=== PATIENT | male | born 1955 | race Caucasian/White ===

== ENCOUNTER → 2019-12-20 | Outpatient (CLI) | payer BC ==
--- NOTE | 2019-12-20 11:05 | XR ---
EXAMINATION TYPE: XR chest 2V DATE OF EXAM: 12/20/2019 COMPARISON: CTA chest May 19, 2012. Prior chest x-ray June 29, 2012. HISTORY: Presurgical study. TECHNIQUE: Frontal and lateral views of the chest are obtained. FINDINGS: There is no focal air space opacity, pleural effusion, or pneumothorax seen. The cardiac silhouette size is stable and upper limits of normal. Slight underlying scoliotic curvature redemonst rated. IMPRESSION: No acute cardiopulmonary process. No significant change from prior studies.
[2019-12-20 12:40] LABS: Prothrombin Time 10.2 sec (9.0-12.0)
[2019-12-20 12:47] LABS: Basophils % (A) 0 %; Eosinophils # (A) 0.2 k/uL (0-0.7); Eosinophils % (A) 3 %; HCT 45.5 % (39.0-53.0); HGB 14.6 gm/dL (13.0-17.5); Lymphocytes # (A) 1.2 k/uL (1.0-4.8); Lymphocytes % (A) 13 %; MCH 28.2 pg (25.0-35.0); MCHC 32.1 g/dL (31.0-37.0); MCV 87.8 fL (80.0-100.0); Mean Platelet Volume 8.4; Monocytes # (A) 0.5 k/uL (0-1.0); Monocytes % (A) 6 %; Neutrophils % (A) 77 %; Platelet Count 231 k/uL (150-450); RBC 5.19 m/uL (4.30-5.90); RDW 13.8 % (11.5-15.5); WBC 9.2 k/uL (3.8-10.6)
[2019-12-20 12:58] LABS: Albumin 4.5 g/dL (3.5-5.0); Calcium 9.6 mg/dL (8.4-10.2); Potassium 5.2 mmol/L (3.5-5.1); Total Bilirubin 0.5 mg/dL (0.2-1.3); Total Protein 7.1 g/dL (6.3-8.2)
== END | disposition home or self-care (01) ==
LOC: LABPAT 10:29
PROVIDERS: ATTEND Internal Medicine Interventional Cardiology
DX: Z01.818 Encounter for other preprocedural examination (principal); Z01.812 Encounter for preprocedural laboratory examination; M17.11 Unilateral primary osteoarthritis, right knee; E78.2 Mixed hyperlipidemia
CPT/HCPCS: 71046; 80053; 80061; 85025; 85610; 87070

== ENCOUNTER 2020-01-09 06:19 | Day surgery (SDC) | payer BC ==
[2020-01-05 12:27] VITALS: BMI 41.7
--- NOTE | 2020-01-08 10:45 | HP ---
HISTORY AND PHYSICAL CHIEF COMPLAINT: Right knee pain. HISTORY OF PRESENT ILLNESS: The patient is a 64-year-old retired male who presents with progressive right knee pain secondary to osteoarthrosis worsening over the past several years. He has pain with weightbearing activities that limits him significantly. He has tried medications in addition to previous injections with partial temporary relief. He does use a cane. PAST MEDICAL HISTORY: Significant for COPD, hypertension, arthritis, dtr-jqfeohq-qojidlmon diabetes, and obesity. PAST SURGICAL HISTORY: Significant for left knee arthroscopy in addition to previous heel surgery. CURRENT MEDICATIONS: Spironolactone, hydrochlorothiazide, lisinopril, metformin, insulin, meloxicam, atorvastatin and gabapentin. He denies drug allergies. FAMILY HISTORY: Unknown. SOCIAL HISTORY: Negative for current tobacco or alcohol use. 16 POINT REVIEW OF SYSTEMS: Otherwise reviewed and is noncontributory. PHYSICAL EXAMINATION: On examination, the patient is approximately 6 foot 2, 325 pounds of endomorphic habitus. HEENT: Exam is nonfocal. Neck is supple. He has painless passive motion of the right hip. Straight leg raise is negative. Active motion right knee -12 to 105 degrees of flexion. He has a mild effusion. He is tender about the medial joint line. Collaterals are stable, Cathie is negative, Latrice's is equivocal. His he has genu varum alignment. His distal neurovascular appears intact in the right lower extremity. Previous x-rays of the right knee obtained in the office show severe medial and patellofemoral compartment narrowing. IMPRESSION: 1. Right knee severe medial and patellofemoral compartment osteoarthrosis. 2. Chronic obstructive pulmonary disease. 3. Obesity. 4. Diabetes. RECOMMENDATIONS: I talked to the patient at length regarding his condition and treatment options. At this point, he has tried extensive conservative measures with persistence of his symptoms and limitation because of pain related to his osteoarthrosis. After a thorough discussion, he opts to proceed with surgery. We will plan to proceed with right total knee arthroplasty. Risks and benefits were discussed at length in layman's terms. We will institute DVT prophylaxis, postoperatively. MMODL / IJN: [id number] /
[~2020-01-09 06:19] MED LIST: ACETAMINOPHEN TAB 500 MG TAB PO ONE; DEXAMETHASONE SOD PHOSPHATE 10 MG/ML 1 ML VIAL IV ONE; HYDROmorphone 0.5 MG/0.5 ML SYRINGE IVP PRN; LIDOCAINE 1% (10MG/ML) FOR IV START INTRADERMA PRN; MELOXICAM 7.5 MG TAB PO ONE; MIDAZOLAM 2 MG/2 ML VIAL IV PRN; ONDANSETRON 4 MG/2 ML VIAL IVP ONE; TRANEXAMIC ACID 1,000 MG in SODIUM CHLORIDE 0.9% 100 ML IVPB ONE; ceFAZolin 3 GM in SODIUM CHLORIDE 0.9% 100 ML IVPB ONE; fentaNYL (PF) 50 MCG/ML 2 ML AMP IV PRN
[2020-01-09] MEDS ORDERED: ONDANSETRON 4 MG/2 ML VIAL ONE (07:12)
[2020-01-09] MEDS ORDERED: ACETAMINOPHEN TAB 500 MG TAB ONE (07:12)
[2020-01-09 07:23] LABS: Glucose,Whole Blood 159 mg/dL (75-99)
[2020-01-09] MEDS ORDERED: fentaNYL (PF) 50 MCG/ML 2 ML AMP IV ONE (07:27)
[2020-01-09] MEDS ORDERED: MIDAZOLAM 2 MG/2 ML VIAL IV ONE (07:27)
[2020-01-09] MEDS: LACTATED RINGERS 1,000 ML IV SCH (07:28)
[2020-01-09] MEDS ORDERED: fentaNYL (PF) 50 MCG/ML 2 ML AMP ONE (07:55)
[2020-01-09] MEDS ORDERED: TRANEXAMIC ACID 1,000 MG/10 ML VIAL ONE (07:55)
[2020-01-09] MEDS ORDERED: SODIUM CHLORIDE 0.9% 100 ML BAG ONE (07:55)
[2020-01-09] MEDS ORDERED: PROPOFOL 10 MG/ML 20 ML VIAL IV ONE (07:55)
[2020-01-09] MEDS ORDERED: MIDAZOLAM 2 MG/2 ML VIAL ONE (07:55)
[2020-01-09] MEDS ORDERED: ROPIVACAINE 246.25 MG, EPINEPHrine 0.5 MG, KETOROLAC 30 MG, cloNIDine HCL/PF 80 MCG, WA... MISCELLANE ONE ×5 (08:01)
[2020-01-09] MEDS ORDERED: ceFAZolin 3,000 MG in SODIUM CHLORIDE 0.9% IRRIGATIO 3,000 ML IRRIGATION ONE (08:43)
[2020-01-09] MEDS ORDERED: MAGNESIUM HYDROXIDE 2,400 MG/10 ML CUP PO PRN (09:49)
[2020-01-09] MEDS ORDERED: ACETAMINOPHEN TAB 325 MG TAB PO PRN (09:49)
[2020-01-09] MEDS ORDERED: ONDANSETRON 4 MG/2 ML VIAL IVP PRN (09:49)
[2020-01-09] MEDS ORDERED: traMADol 50 MG TAB PO PRN (09:49)
[2020-01-09] MEDS ORDERED: NALOXONE 0.4 MG/ML 1 ML VIAL IV PRN (09:49)
[2020-01-09] MEDS ORDERED: HYDROcodone/APAP 7.5-325MG 1 EACH TAB PO PRN (09:49)
[2020-01-09] MEDS ORDERED: HYDROmorphone 0.5 MG/0.5 ML SYRINGE IVP PRN (09:49)
[2020-01-09] MEDS ORDERED: LACTATED RINGERS 1,000 ML IV ONE (09:50)
--- NOTE | 2020-01-09 09:50 | P.ANPRN ---
Procedure Note - Anesthesia - Nerve Block Performed Right Adductor Canal Infusion Time Out Performed: Yes ([id number]) Date of Procedure: 01/09/20 Procedure Start Time: : Procedure Stop Time: : Location of Patient: PreOp Indication: Acute Post-Operative Pain, Requested by Surgeon Specifically requested for management of pain by : Rufus Gray Sedation Type: Sedate with meaningful contact maintained Preparation: Sterile Prep Position: Supine Catheter Depth at Skin (cm): 8 Catheter: Indwelling Needle Types: Pajunk Needle Gauge: 18 Ultrasound used to visualize needle placement: Yes Ultrasound used to observe medication spread: Yes Injectate: 0.5% Ropivacaine (see comment for volume) (20cc) Blood Aspirated: No Pain Paresthesia on Injection Noted: No Resistance on Injection: Normal Image Stored and Saved: Yes Events: Uneventful and Well Tolerated
--- NOTE | 2020-01-09 10:20 | P.OP ---
Date of Procedure: 01/09/20 Preoperative Diagnosis: Severe tricompartmental osteoarthrosis Postoperative Diagnosis: Same Procedure(s) Performed: Right total knee arthroplastycementedposterior stabilized Implants: Depuy Attune size 8 cemented femoral component, size 7 cemented tibial component, 15 mm tibial stem, 16 mm articular surface, 38 mm patellar component. This is a posterior stabilized implant. Anesthesia: regional, local, spinal Surgeon: Rufus Gray Calculating Machine Operator #1: Ravindra Jiang Estimated Blood Loss (ml): 50 Pathology: other (Bone fragments) Condition: stable Disposition: PACU Indications for Procedure: The patient's a 64-year-old male who presents with progressive right knee pain secondary to osteoarthrosis despite conservative measures. A discussion of the risks and benefits of operative intervention versus continued conservative measures was made with patient. To proceed with surgery. Operative risks to include infection, neurovascular injury, development of blood clots, possible fracture, possible component loosening/failure and possible need for subsequent procedures was discussed. Informed consent was obtained. Operative Findings: As below Description of Procedure: The patient was brought to the operating room, and after induction of spinal anesthesia the right lower extremity was prepped and draped in a normal fashion. The tourniquet was inflated to 270 mm marker. A longitudinal incision extending 3 finger breaths above the superior pole of patella extending to the medial aspect the tibial tubercle was then made. The skin and subcutaneous tissues were divided sharply. Electrocautery was used for hemostasis. A medial parapatellar arthrotomy was performed. The medial soft tissues to include the superficial and deep portions of the medial collateral ligament were elevated subperiosteally. The patella was everted. A portion of the retropatellar fat pad was excised sharply. The anterior cruciate ligament was sacrificed. Blunt retractors were placed. A starting hole was made in the distal femur 1 cm anterior to the posterior cruciate ligament origin. An intramedullary femoral guide was then inserted planning on 5 valgus distal cut with 10 mm distal resection. The cutting block was pinned in place. The distal cut was then made. The posterior referencing sizing guide was utilized. I felt size 8 was most appropriate. 3 of external rotation was built into the system and verified off the trans-epicondylar axis and the posterior condyles. The cutting block was pinned in place. The anterior, posterior, and chamfer cuts then made. Bone fragments were removed. The intercondylar guide was placed and the notch cut was made with a sagittal saw. The bone block was removed in one fragment. The trial component was then placed. There is good anterior to posterior and medial to lateral fit. The distal peg holes were drilled. The trial component was removed. Attention was then paid towards preparing the proximal femur. An extra medullary guide was utilized in line with the tibial shaft and second metatarsal distally. I planned on 6 mm resection from the medial compartment. The cutting block was pinned in place. The proximal tibial cut was then made. The bone was removed in one fragment. The remnants of the medial and lateral menisci were excised at the capsular junction with electrocautery. The tibia sized most appropriately at size 7. The trial femoral and tibial components were placed along with a 16 mm articular surface. I was able to obtain full flexion and extension with internal and external rotation. After several flexion and extension cycles, the tibial rotation was marked with electrocautery line with the medial one third of the tibial tubercle. Attention was then paid towards preparing the patella. A patella reamer was utilized taking stem to 14 mm of bone stock. A good flush cut was made. The patella sized most appropriately 38 mm. The peg holes were drilled. The trial components placed. I had good patellofemoral tracking with no hands technique. The trial components were then removed. The tibia was prepared in the appropriate rotation with appropriate drill and keel punch. The posterior osteophytes were removed with a curved osteotome. The flexion and extension gaps were checked and felt to be symmetric at 16 mm. A trial components were then removed. The posterior soft tissues were injected with ropivacaine. The bony surfaces were prepared with pulsatile lavage and dried. The tibial component was then cemented place was fully seated. Excess cement was removed. The femoral component cemented place and was fully seated. Excess cement was removed. The trial 16 mm articular surface was placed and the knee was put in full extension. The patella component was cemented place. After the cement had sufficiently hardened, the knee was again taken through a range of motion. Again I was able to obtain full flexion and extension with varus and valgus stress. The trial 16 mm articular surface was removed and the final one inserted. This was fully seated. Care was taken to avoid any soft tissue interposition. Pulsatile lavage was again utilized. The medial parapatellar arthrotomy was closed with #2 Ethibond suture. The tourniquet was deflated with approximately 60 minutes total tourniquet time. Final hemostasis was obtained with the cautery. There was minimal bleeding therefore a deep drain was not placed. The subcutaneous tissues were reapproximated with interrupted 2-0 Vicryl sutures. The skin was reapproximated with 3-0 subcuticular strata fix suture. Skin tape and adhesive was applied. A sterile dressing was applied. The patient was awoken from sedation and transferred to recovery room in good condition. Blood loss was estimated at 50 mL. No complications were incurred. Sponge and needle counts were correct at the end of the case. Abhinav BUTLER assisted during the major components of this case to include exposure, bone resection, implantation, and closure.
[2020-01-09] MEDS ORDERED: ROPIVACAINE 0.2%-NS ON-Q PUMP 1,090 MG, EMPTY PAIN BALL 1 EACH MISCELLANE PRN (10:21)
[2020-01-09 10:37] LABS: Glucose,Whole Blood 188 mg/dL (75-99)
--- NOTE | 2020-01-09 11:15 | XR ---
EXAMINATION TYPE: XR knee limited RT DATE OF EXAM: 01/09/2020 CLINICAL HISTORY: Right knee pain and arthritis status post total knee replacement. TECHNIQUE: Portable AP and crosstable lateral views of the right knee are obtained immediately posto peratively. COMPARISON: None FINDINGS: Metallic hardware from total right knee arthroplasty is seen and appears satisfactory in a lignment and position. Proximal tibial component approaches the lateral margin of the proximal tibial cortex on frontal projection. There is evidence of recent surgery with diffuse subcutaneous gas and soft tissue swelling noted. IMPRESSION: METALLIC HARDWARE FROM TOTAL right KNEE ARTHROPLASTY IS SATISFACTORY IN ALIGNMENT.
[2020-01-09] MEDS ORDERED: IPRATROPIUM-ALBUTEROL 3 ML NEB INHALATION PRN (11:52)
[2020-01-09] MEDS ORDERED: PANTOPRAZOLE 40 MG/10 ML VIAL IVP SCH (12:00)
[2020-01-09 12:45] LABS: Glucose,Whole Blood 307 mg/dL (75-99)
[2020-01-09] MEDS: INSULIN ASPART (NovoLOG) 100 UNIT/ML VIAL SQ SCH ×4 (12:48→20:37)
[2020-01-09] MEDS: ceFAZolin 3 GM in SODIUM CHLORIDE 0.9% 100 ML IVPB SCH ×2 (15:17→23:07)
[2020-01-09] MEDS: IPRATROPIUM-ALBUTEROL 3 ML NEB INHALATION SCH ×3 (15:45→21:07)
[2020-01-09 16:40] LABS: Glucose,Whole Blood 202 mg/dL (75-99)
[2020-01-09] MEDS: HYDROcodone/APAP 7.5-325MG 1 EACH TAB PO PRN ×2 (16:58→23:07)
[2020-01-09] MEDS: metFORMIN 500 MG TAB PO SCH (16:58)
[2020-01-09 20:21] LABS: Glucose,Whole Blood 179 mg/dL (75-99)
[2020-01-09] MEDS: SENNOSIDES-DOCUSATE SODIUM 1 EACH TAB PO SCH (20:37)
[2020-01-09] MEDS: INSULIN DETEMIR (LEVEMIR) 100 UNIT/ML SYR SQ SCH (20:52)
[2020-01-10 02:13] LABS: Glucose,Whole Blood 142 mg/dL (75-99)
[2020-01-10] MEDS: LACTATED RINGERS 1,000 ML IV SCH (05:04)
[2020-01-10] MEDS: HYDROcodone/APAP 7.5-325MG 1 EACH TAB PO PRN ×2 (05:05→10:37)
[2020-01-10 06:39] LABS: Glucose,Whole Blood 170 mg/dL (75-99)
--- NOTE | 2020-01-10 07:16 | P.PN ---
Progress Note - Text Progress Note Date: 01/10/20 (557) Anesthesiology Postop day 1 status post total knee arthroplasty with adductor canal catheter. Patient doing well. VAS 10 out of 10. Getting breakthrough meds, patient states was able to rest on and off throughout night. Gross strength intact in lower extremity. Afebrile. Denies alterations in sensorium. Catheter site intact. Heart regular rate Lungs nonlabored Abdomen nondistended Assessment: Postop day 1 status post total knee arthroplasty with adductor canal catheter Plan: All questions answered. Maintain catheter 2 more days with patient removal at home. Instructions were given at discharge.
[2020-01-10] MEDS: INSULIN ASPART (NovoLOG) 100 UNIT/ML VIAL SQ SCH ×6 (07:29→21:04)
[2020-01-10] MEDS: metFORMIN 500 MG TAB PO SCH ×2 (07:30→16:34)
[2020-01-10] MEDS: lisinopriL 20 MG TAB PO SCH (07:30)
[2020-01-10] MEDS: RIVAROXABAN 10 MG TAB PO SCH (07:30)
[2020-01-10] MEDS: PANTOPRAZOLE 40 MG TABLET PO SCH (07:30)
[2020-01-10 08:03] LABS: Basophils % (A) 0 %; Eosinophils # (A) 0.1 k/uL (0-0.7); Eosinophils % (A) 1 %; HCT 33.4 % (39.0-53.0); Lymphocytes # (A) 0.7 k/uL (1.0-4.8); Lymphocytes % (A) 6 %; MCH 28.2 pg (25.0-35.0); MCHC 31.8 g/dL (31.0-37.0); MCV 88.7 fL (80.0-100.0); Mean Platelet Volume 8.3; Monocytes % (A) 8 %; Neutrophils # (A) 9.9 k/uL (1.3-7.7); Neutrophils % (A) 84 %; Platelet Count 186 k/uL (150-450); RBC 3.76 m/uL (4.30-5.90); RDW 14.6 % (11.5-15.5); WBC 11.8 k/uL (3.8-10.6)
[2020-01-10 08:13] LABS: HGB 10.6 gm/dL (13.0-17.5)
[2020-01-10] MEDS: IPRATROPIUM-ALBUTEROL 3 ML NEB INHALATION SCH ×4 (08:23→19:24)
[2020-01-10 09:54] LABS: African American GFR (CKD) >90 (>60 ml/min/1.73 sqM); Anion Gap 8 mmol/L; Blood Urea Nitrogen 21 mg/dL (9-20); Calcium 8.3 mg/dL (8.4-10.2); Carbon Dioxide 23 mmol/L (22-30); Chloride 103 mmol/L (98-107); Glucose 205 mg/dL (74-99); Non-African American GFR(CKD) >90 (>60 ml/min/1.73 sqM); Potassium 4.6 mmol/L (3.5-5.1); Sodium 134 mmol/L (137-145)
--- NOTE | 2020-01-10 11:03 | P.CONS ---
History of Present Illness - Reason for Consult Consult date: 01/10/20 Medical management diabetes mellitus, COPD, hypertension Requesting physician: Rufus Gray - Chief Complaint Osteoarthritis right knee - History of Present Illness This is a 64-year-old gentleman with past medical history of COPD, diabetes mellitus, hyperlipidemia, hypertension, osteoarthritis, obesity and multiple other medical issues, status post right total knee arthroplasty. Tolerated procedure well. Pain managementpatient has adductor canal catheter with anthony tional breakthrough meds prn. Maintaining ice on surgical site, complaining more of pain in the thigh area, proximal to the surgical site. T-max 99.1, WBC 11.8. Incentive spirometer at bedside. Maintaining O2 sats in the high 90s on room air. Hemoglobin 10.6, asymptomatic, suspect dilutional. Diet intake 100%. Blood sugars better controlled, currently 170, home med regimen adjusted. Passing flatus, denies nausea, vomiting or diarrhea. Denies chest pain, palpitations or shortness of breath. Review of Systems Constitutional: Denied any fatigue denied any fever. Cardio vascular: denied any chest pain, palpitations Gastrointestinal denied any nausea vomiting Pulmonary: Denied any shortness of breath cough Neurologic denied any new focal deficits ROS Statement: Those systems with pertinent positive or pertinent negative responses have been documented in the HPI. ROS Other: All systems not noted in ROS Statement are negative. Past Medical History Past Medical History: COPD, Diabetes Mellitus, Hyperlipidemia, Hypertension, Osteoarthritis (OA) History of Any Multi-Drug Resistant Organisms: None Reported Past Surgical History: Orthopedic Surgery Additional Past Surgical History / Comment(s): shattered lt heel repair, lt knee arthroscopy Past Anesthesia/Blood Transfusion Reactions: Previous Problems w/ Anesthesia Additional Past Anesthesia/Blood Transfusion Reaction / Comm: "come out of it before I'm supposed to" Smoking Status: Never smoker - Past Family History Mother Family Medical History: Unable to Obtain Medications and Allergies Home Medications Medication Instructions Recorded Confirmed Type Atorvastatin [Lipitor] 20 mg PO DAILY 03/27/19 01/05/20 History Insulin Detemir (Levemir) [Levemir] 100 units SQ HS 03/27/19 01/05/20 History Meloxicam 15 mg PO HS 03/27/19 01/05/20 History Spironolactone 50 mg PO DAILY 03/27/19 01/05/20 History lisinopriL [Zestril] 20 mg PO DAILY 03/27/19 01/05/20 History Albuterol Sulfate [Ventolin HFA] 1 - 2 puff INHALATION Q6H PRN 01/05/20 01/05/20 History Cannabidiol (Cbd) [Epidiolex] 1 dose TOPICAL DAILY PRN 01/05/20 01/05/20 History Furosemide [Lasix] 20 mg PO DAILY PRN 01/05/20 01/05/20 History Insulin Aspart [NovoLOG] 80 units SQ AC-TID 01/05/20 01/05/20 History Multivitamins, Thera [Multivitamin 1 tab PO DAILY 01/05/20 01/05/20 History (formulary)] Phentermine HCl 37.5 mg PO AC-BRKFST 01/05/20 01/05/20 History metFORMIN HCL 1,000 mg PO BID 01/05/20 01/05/20 History Allergies Allergy/AdvReac Type Severity Reaction Status Date / Time No Known Allergies Allergy Verified 01/09/20 06:49 Physical Exam Vitals: Vital Signs Temp Pulse Pulse Pulse Resp BP BP 01/10/20 08:45 83 01/10/20 08:23 86 01/10/20 07:00 99.1 F 83 12 109/66 01/10/20 01:19 99.0 F 74 18 01/09/20 19:21 98.1 F 83 16 01/09/20 13:29 102 H 01/09/20 13:13 105 H 01/09/20 12:58 90 01/09/20 12:43 83 01/09/20 12:28 85 01/09/20 12:13 98 01/09/20 11:58 81 01/09/20 11:42 98.3 F 86 14 142/78 01/09/20 11:21 80 14 108/51 01/09/20 11:13 82 16 104/51 01/09/20 11:00 79 14 148/66 01/09/20 10:45 78 16 108/53 BP Pulse Ox 01/10/20 08:45 01/10/20 08:23 97 01/10/20 07:00 98 01/10/20 01:19 125/70 98 01/09/20 19:21 145/70 99 01/09/20 13:29 116/56 01/09/20 13:13 147/90 01/09/20 12:58 149/81 01/09/20 12:43 132/70 01/09/20 12:28 123/72 01/09/20 12:13 162/81 01/09/20 11:58 143/79 01/09/20 11:42 97 01/09/20 11:21 92 L 01/09/20 11:13 92 L 01/09/20 11:00 93 L 01/09/20 10:45 94 L Intake and Output 01/09/20 01/10/20 01/10/20 22:59 06:59 14:59 Intake Total 400 560 Output Total 525 Balance -125 560 Intake: Intake, IV Titration 400 Amount Lactated Ringers 1,000 ml 400 @ 50 mls/hr IV .Q20H [facility] Rx#:[id number] Oral 560 Output: Urine 525 Other: Voiding Method Toilet # Voids 1 2 PHYSICAL EXAM: VITAL SIGNS: As above GENERAL: Sitting up in chair, no acute distress HEENT: Conjunctivae normal. eyes normal. Oral mucosa moist NECK: No JVD. No thyroid enlargement. No LNs CARDIOVASCULAR: S1, S2 regular. No murmur RESPIRATION: Breath sounds diminished in the bases. No rhonchi or crackles. No bronchial breathing. ABDOMEN: Soft, obese, nontender . No guarding. no masses palpable. No ascites, No hepatosplenomegaly.Bowel sounds heard. LEGS: Right leg elevated, dressing clean dry and intact, ice packs on the affected side, mild edema, no calf pain, positive peripheral pulses PSYCHIATRY: Alert and oriented X3, mood and affect normal. NERVOUS SYSTEM: Cranial N 2-12 grossly normal. Moves all 4 limbs. No focal deficits. Strength and sensation grossly intact.. Skin: Warm and dry, no rash Lymphatic system. No LN neck axilla Results CBC & Chem 7: 01/10/20 07:41 01/10/20 07:41 Labs: Abnormal Lab Results - Last 24 Hours (Table) 01/09/20 01/09/20 01/09/20 Range/Units 12:44 16:38 20:11 WBC (3.8-10.6) k/uL RBC (4.30-5.90) m/uL Hgb (13.0-17.5) gm/dL Hct (39.0-53.0) % Neutrophils # (1.3-7.7) k/uL Lymphocytes # (1.0-4.8) k/uL Sodium (137-145) mmol/L BUN (9-20) mg/dL Glucose (74-99) mg/dL POC Glucose (mg/dL) 307 H 202 H 179 H (75-99) mg/dL Calcium (8.4-10.2) mg/dL 01/10/20 01/10/20 01/10/20 Range/Units 02:09 06:37 07:41 WBC 11.8 H (3.8-10.6) k/uL RBC 3.76 L (4.30-5.90) m/uL Hgb 10.6 L D (13.0-17.5) gm/dL Hct 33.4 L (39.0-53.0) % Neutrophils # 9.9 H (1.3-7.7) k/uL Lymphocytes # 0.7 L (1.0-4.8) k/uL Sodium (137-145) mmol/L BUN (9-20) mg/dL Glucose (74-99) mg/dL POC Glucose (mg/dL) 142 H 170 H (75-99) mg/dL Calcium (8.4-10.2) mg/dL 01/10/20 Range/Units 07:41 WBC (3.8-10.6) k/uL RBC (4.30-5.90) m/uL Hgb (13.0-17.5) gm/dL Hct (39.0-53.0) % Neutrophils # (1.3-7.7) k/uL Lymphocytes # (1.0-4.8) k/uL Sodium 134 L (137-145) mmol/L BUN 21 H (9-20) mg/dL Glucose 205 H (74-99) mg/dL POC Glucose (mg/dL) (75-99) mg/dL Calcium 8.3 L (8.4-10.2) mg/dL Assessment and Plan Assessment: Right knee osteoarthritis, status post right total knee arthroplasty Acute postop anemia, asymptomatic, suspect dilutional,EBL 50ml COPD stable Diabetes mellitus, hyperglycemic Hypertension Hyperlipidemia Morbid obesity, BMI 42.8, Plan: Continue on current medication regime ,monitoring and diabetic treatment. Pain management. PT. Suspect hemoglobin dilutional, recheck in a.m. Home meds have been reviewed and resumed accordingly. Adjusting oral hypoglycemics -Close monitoring of blood sugars. Hemoglobin A1c pending. Thank you Dr. Gray for the consult. The impression and plan of care has been dictated as directed. : I performed a history and examination of this patient, discussed the same with the dictator. I agree with the dictator's note ,documented as a scribe. Any additional findings or plans will be noted.
[2020-01-10 11:09] LABS: Glucose,Whole Blood 222 mg/dL (75-99)
[2020-01-10] MEDS ORDERED: INSULIN ASPART (NovoLOG) 100 UNIT/ML VIAL SQ SCH ×2 (12:30)
--- NOTE | 2020-01-10 12:55 | P.PN ---
Subjective Progress Note Date: 01/10/20 Principal diagnosis: Status post right total knee arthroplasty The patient notes moderate right knee pain overnight. He denies shortness of breath. Objective - Vital Signs Vital signs: Vital Signs Temp 99.1 F 01/10/20 07:00 Pulse 83 01/10/20 08:45 Resp 12 01/10/20 07:00 BP 109/66 01/10/20 07:00 Pulse Ox 97 01/10/20 08:23 Intake & Output 01/09/20 01/10/20 01/10/20 18:59 06:59 18:59 Intake Total 2111 400 560 Output Total 575 Balance 1536 400 560 Weight 151.2 kg Intake: IV 1201 Intake, IV Titration 400 Amount Lactated Ringers 1,000 ml 400 @ 50 mls/hr IV .Q20H [facility] Rx#:[id number] Oral 910 560 Output: Urine 525 Estimated Blood Loss 50 Other: Voiding Method Toilet # Voids 1 2 - Exam Right knee incision clean/dry/intact Homans negative right lower extremity Neurovascular exam intact right lower extremity - Labs CBC & Chem 7: 01/10/20 07:41 01/10/20 07:41 Labs: Abnormal Lab Results - Last 24 Hours (Table) 01/09/20 01/09/20 01/10/20 Range/Units 16:38 20:11 02:09 WBC (3.8-10.6) k/uL RBC (4.30-5.90) m/uL Hgb (13.0-17.5) gm/dL Hct (39.0-53.0) % Neutrophils # (1.3-7.7) k/uL Lymphocytes # (1.0-4.8) k/uL Sodium (137-145) mmol/L BUN (9-20) mg/dL Glucose (74-99) mg/dL POC Glucose (mg/dL) 202 H 179 H 142 H (75-99) mg/dL Calcium (8.4-10.2) mg/dL 01/10/20 01/10/20 01/10/20 Range/Units 06:37 07:41 07:41 WBC 11.8 H (3.8-10.6) k/uL RBC 3.76 L (4.30-5.90) m/uL Hgb 10.6 L D (13.0-17.5) gm/dL Hct 33.4 L (39.0-53.0) % Neutrophils # 9.9 H (1.3-7.7) k/uL Lymphocytes # 0.7 L (1.0-4.8) k/uL Sodium 134 L (137-145) mmol/L BUN 21 H (9-20) mg/dL Glucose 205 H (74-99) mg/dL POC Glucose (mg/dL) 170 H (75-99) mg/dL Calcium 8.3 L (8.4-10.2) mg/dL 01/10/20 Range/Units 11:07 WBC (3.8-10.6) k/uL RBC (4.30-5.90) m/uL Hgb (13.0-17.5) gm/dL Hct (39.0-53.0) % Neutrophils # (1.3-7.7) k/uL Lymphocytes # (1.0-4.8) k/uL Sodium (137-145) mmol/L BUN (9-20) mg/dL Glucose (74-99) mg/dL POC Glucose (mg/dL) 222 H (75-99) mg/dL Calcium (8.4-10.2) mg/dL Assessment and Plan Assessment: Status post right total knee arthroplasty Plan: Continue physical therapy. Continue analgesia. DVT prophylaxis. Possible discharge home tomorrow. Time with Patient: Less than 30
[2020-01-10 16:22] LABS: Glucose,Whole Blood 171 mg/dL (75-99)
[2020-01-10] MEDS: HYDROcodone/APAP 10-325MG 1 EACH TAB PO PRN ×2 (16:34→21:04)
[2020-01-10 21:02] LABS: Glucose,Whole Blood 190 mg/dL (75-99)
[2020-01-10] MEDS: SENNOSIDES-DOCUSATE SODIUM 1 EACH TAB PO SCH (21:03)
[2020-01-10] MEDS: INSULIN DETEMIR (LEVEMIR) 100 UNIT/ML SYR SQ SCH (21:04)
[2020-01-10 23:26] LABS: Hemoglobin A1C 6.3 % (4.0-6.0)
[2020-01-11] MEDS: LACTATED RINGERS 1,000 ML IV SCH (06:21)
[2020-01-11 06:47] LABS: Glucose,Whole Blood 144 mg/dL (75-99)
[2020-01-11 07:47] VITALS: BP 136/61; RESP 16; TEMP 98.3
[2020-01-11] MEDS: HYDROcodone/APAP 10-325MG 1 EACH TAB PO PRN ×2 (07:49→11:32)
[2020-01-11] MEDS: INSULIN ASPART (NovoLOG) 100 UNIT/ML VIAL SQ SCH ×4 (07:50→12:12)
[2020-01-11] MEDS: lisinopriL 20 MG TAB PO SCH (07:50)
[2020-01-11] MEDS: metFORMIN 500 MG TAB PO SCH (07:50)
[2020-01-11] MEDS: RIVAROXABAN 10 MG TAB PO SCH (07:50)
[2020-01-11] MEDS: PANTOPRAZOLE 40 MG TABLET PO SCH (07:50)
[2020-01-11] MEDS: IPRATROPIUM-ALBUTEROL 3 ML NEB INHALATION SCH ×2 (08:20→11:45)
[2020-01-11] MEDS ORDERED: MULTIVITAMINS, THERA 1 EACH TAB PO SCH (09:00)
[2020-01-11] MEDS ORDERED: ATORVASTATIN 20 MG TAB PO SCH (09:00)
[2020-01-11] MEDS ORDERED: SPIRONOLACTONE 25 MG TAB PO SCH (09:00)
[2020-01-11 09:23] LABS: HCT 31.6 % (39.0-53.0); HGB 10.7 gm/dL (13.0-17.5); MCH 29.2 pg (25.0-35.0); MCHC 33.9 g/dL (31.0-37.0); MCV 86.2 fL (80.0-100.0); Platelet Count 161 k/uL (150-450); RBC 3.66 m/uL (4.30-5.90); RDW 14.2 % (11.5-15.5); WBC 10.3 k/uL (3.8-10.6)
[2020-01-11] MEDS ORDERED: DOCUSATE 100 MG CAP PO SCH (10:45)
[2020-01-11 11:26] LABS: Glucose,Whole Blood 124 mg/dL (75-99)
[2020-01-11 11:47] VITALS: PULSE 88
--- NOTE | 2020-01-11 12:29 | P.PN ---
Subjective Progress Note Date: 01/11/20 Principal diagnosis: status post right total knee arthroplasty Patient notes improved pain levels involving his right knee. Objective - Vital Signs Vital signs: Vital Signs Temp 98.3 F 01/11/20 07:44 Pulse 88 01/11/20 11:56 Resp 16 01/11/20 07:44 BP 136/61 01/11/20 07:44 Pulse Ox 97 01/11/20 07:44 Intake & Output 01/10/20 01/11/20 01/11/20 18:59 06:59 18:59 Intake Total 2320 700 540 Balance 2320 700 540 Intake: Intake, IV Titration 200 400 Amount Lactated Ringers 1,000 ml 100 400 @ 50 mls/hr IV .Q20H [facility] Rx#:[id number] ceFAZolin 3 gm In Sodium 100 Chloride 0.9% 100 ml @ 200 mls/hr IVPB Q8HR [facility] Rx#:[id number] Oral 2120 300 540 Other: Voiding Method Toilet # Voids 1 - Exam right knee incision clean/dry/intact Neurovascular exam intact right lower extremity Homans negative right lower extremity - Labs CBC & Chem 7: 01/11/20 09:10 01/10/20 07:41 Labs: Abnormal Lab Results - Last 24 Hours (Table) 01/10/20 01/10/20 01/10/20 Range/Units 07:41 16:21 20:57 RBC (4.30-5.90) m/uL Hgb (13.0-17.5) gm/dL Hct (39.0-53.0) % POC Glucose (mg/dL) 171 H 190 H (75-99) mg/dL Hemoglobin A1c 6.3 H (4.0-6.0) % 01/11/20 01/11/20 01/11/20 Range/Units 06:46 09:10 11:26 RBC 3.66 L (4.30-5.90) m/uL Hgb 10.7 L (13.0-17.5) gm/dL Hct 31.6 L (39.0-53.0) % POC Glucose (mg/dL) 144 H 124 H (75-99) mg/dL Hemoglobin A1c (4.0-6.0) % Assessment and Plan Assessment: status post right total knee arthroplasty Plan: Discharge home. Anticoagulation as prescribed. 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 Follow-up 2 weeks. weightbearing as tolerated with walker.
--- NOTE | 2020-01-11 14:15 | P.PN ---
Subjective Progress Note Date: 01/11/20 This is a 64-year-old gentleman with past medical history of COPD, diabetes mellitus, hyperlipidemia, hypertension, osteoarthritis, obesity and multiple other medical issues, status post right total knee arthroplasty. Tolerated procedure well. Pain managementpatient has adductor canal catheter with anthony tional breakthrough meds prn. Maintaining ice on surgical site, complaining more of pain in the thigh area, proximal to the surgical site. T-max 99.1, WBC 11.8. Incentive spirometer at bedside. Maintaining O2 sats in the high 90s on room air. Hemoglobin 10.6, asymptomatic, suspect dilutional. Diet intake 100%. Blood sugars better controlled, currently 170, home med regimen adjusted. Passing flatus, denies nausea, vomiting or diarrhea. Denies chest pain, palpitations or shortness of breath. 01/11/20 Participated with PT, tolerated well. Pain controlled. Passing flatus. No bowel movement. Hemoglobin unchanged, 10.7, platelets 161, asymptomatic, reports no bleeding.VSS, No tachycardia. Denies chest pain, palpitations or shortness of breath. Denies lightheadedness, dizziness or focal deficits. Objective - Vital Signs Vital signs: Vital Signs Temp 98.3 F 01/11/20 07:44 Pulse 92 01/11/20 08:33 Resp 16 01/11/20 07:44 BP 136/61 01/11/20 07:44 Pulse Ox 97 01/11/20 07:44 Intake & Output 01/10/20 01/11/20 01/11/20 18:59 06:59 18:59 Intake Total 2320 700 540 Balance 2320 700 540 Intake: Intake, IV Titration 200 400 Amount Lactated Ringers 1,000 ml 100 400 @ 50 mls/hr IV .Q20H [facility] Rx#:[id number] ceFAZolin 3 gm In Sodium 100 Chloride 0.9% 100 ml @ 200 mls/hr IVPB Q8HR [facility] Rx#:[id number] Oral 2120 300 540 Other: Voiding Method Toilet # Voids 1 - Exam PHYSICAL EXAM: VITAL SIGNS: As above GENERAL: Alert and oriented 3, Sitting up in chair, no acute distress HEENT: Conjunctivae normal. eyes normal. Oral mucosa moist NECK: No JVD. No thyroid enlargement. No LNs CARDIOVASCULAR: S1, S2 regular. No murmur RESPIRATION: Breath sounds diminished in the bases. No rhonchi or crackles. No bronchial breathing. ABDOMEN: Soft, obese, nontender . No guarding. no masses palpable. No ascites, No hepatosplenomegaly.Bowel sounds heard. LEGS: Right leg elevated, dressing clean dry and intact, no calf pain, positive peripheral pulses NERVOUS SYSTEM: Cranial N 2-12 grossly normal. Moves all 4 limbs. No focal deficits. Strength and sensation grossly intact.. Skin: Warm and dry, no rash - Labs CBC & Chem 7: 01/11/20 09:10 01/10/20 07:41 Labs: Abnormal Lab Results - Last 24 Hours (Table) 01/10/20 01/10/20 01/10/20 Range/Units 07:41 07:41 11:07 RBC (4.30-5.90) m/uL Hgb (13.0-17.5) gm/dL Hct (39.0-53.0) % Sodium 134 L (137-145) mmol/L BUN 21 H (9-20) mg/dL Glucose 205 H (74-99) mg/dL POC Glucose (mg/dL) 222 H (75-99) mg/dL Hemoglobin A1c 6.3 H (4.0-6.0) % Calcium 8.3 L (8.4-10.2) mg/dL 01/10/20 01/10/20 01/11/20 Range/Units 16:21 20:57 06:46 RBC (4.30-5.90) m/uL Hgb (13.0-17.5) gm/dL Hct (39.0-53.0) % Sodium (137-145) mmol/L BUN (9-20) mg/dL Glucose (74-99) mg/dL POC Glucose (mg/dL) 171 H 190 H 144 H (75-99) mg/dL Hemoglobin A1c (4.0-6.0) % Calcium (8.4-10.2) mg/dL 01/11/20 Range/Units 09:10 RBC 3.66 L (4.30-5.90) m/uL Hgb 10.7 L (13.0-17.5) gm/dL Hct 31.6 L (39.0-53.0) % Sodium (137-145) mmol/L BUN (9-20) mg/dL Glucose (74-99) mg/dL POC Glucose (mg/dL) (75-99) mg/dL Hemoglobin A1c (4.0-6.0) % Calcium (8.4-10.2) mg/dL Assessment and Plan Assessment: Right knee osteoarthritis, status post right total knee arthroplasty Acute postop anemia, asymptomatic, further follow-up outpatient in clinic with PCP COPD stable Diabetes mellitus, hyperglycemic, better controlled, hemoglobin A1c 6.3 Hypertension Hyperlipidemia Morbid obesity, BMI 42.8, Plan: Continue on current medication regime ,monitoring and diabetic treatment. FOBT ordered,. F/U in PCP clinic with Dr. Briones in 3 days regarding further anemia evaluation/W/U. The impression and plan of care has been dictated as directed. : I performed a history and examination of this patient, discussed the same with the dictator. I agree with the dictator's note ,documented as a scribe. Any additional findings or plans will be noted.
== END 2020-01-11 14:23 | disposition home health service (06) ==
LOC: OR 06:19 → 4SSUR 10:35 → OR 01-11 14:23
PROVIDERS: ATTEND Orthopaedic Surgery
DX: M17.11 Unilateral primary osteoarthritis, right knee (principal); D64.9 Anemia, unspecified; B97.4 Respiratory syncytial virus as the cause of diseases classified elsewhere; J44.9 Chronic obstructive pulmonary disease, unspecified; I10 Essential (primary) hypertension; E78.5 Hyperlipidemia, unspecified; E11.65 Type 2 diabetes mellitus with hyperglycemia; E66.01 Morbid (severe) obesity due to excess calories; Z68.41 Body mass index [BMI] 40.0-44.9, adult; Z98.890 Other specified postprocedural states; Z79.1 Long term (current) use of non-steroidal anti-inflammatories (NSAID); Z79.4 Long term (current) use of insulin; Z79.899 Other long term (current) drug therapy
CPT/HCPCS: 94640 ×4; 94760; 97116 ×2; 97110 ×2; 97161; 64448; 76942; 80048; 84132; 85025; 85027; 88300; 83036; 73560; 27447; C1713; C1776; J2250; J0171; J1100; J0690 ×2; J2405; J3010; J1885; J2795 ×2; J2704; J0735; C9113; J1170

== ENCOUNTER → 2020-02-27 | Outpatient (CLI) | payer BC ==
[2020-02-27 11:55] LABS: Potassium 4.7 mmol/L (3.5-5.1)
== END | disposition home or self-care (01) ==
LOC: LABPAT 10:15
PROVIDERS: ATTEND Orthopaedic Surgery
DX: Z01.818 Encounter for other preprocedural examination (principal); M17.12 Unilateral primary osteoarthritis, left knee
CPT/HCPCS: 36415; 80051

== ENCOUNTER 2020-03-05 08:22 | Day surgery (SDC) | payer BC, MEDICARE ==
[2020-02-29 12:05] VITALS: BMI 40.4
--- NOTE | 2020-03-04 11:00 | HP ---
HISTORY AND PHYSICAL CHIEF COMPLAINTS: Left knee pain. HISTORY OF PRESENT ILLNESS: Patient is a 65-year-old retired gentleman who presents with progressive left knee pain for the past several years. He notes pain, stiffness, and swelling. It limits his normal function and activities. He recently underwent right total knee arthroplasty. He does use a cane. PAST MEDICAL HISTORY: Significant for hypertension and arthritis. PAST SURGICAL HISTORY: Significant for recent right total knee arthroplasty, left knee arthroscopy and left heel surgery. CURRENT MEDICATIONS: Spironolactone, lisinopril, metformin, meloxicam, atorvastatin, gabapentin, [place]. He denies drug allergies. FAMILY HISTORY: Unknown. SOCIAL HISTORY: Negative for current tobacco or alcohol use. 16 POINT REVIEW OF SYSTEMS: Otherwise reviewed and is noncontributory. On examination, the patient is approximately 6 foot 2, 315 pounds of endomorphic habitus. HEENT: Exam is nonfocal. NECK: Supple. He has painless passive motion of his left hip. Straight leg raise is negative. Active motion left knee -14 to 105 degrees of flexion. He has a mild effusion. He is tender about the medial joint line. Collaterals are stable, Cathie is negative, Latrice's is equivocal. His distal neurovascular exam appears intact. Left lower extremity. Weightbearing notch, lateral and Merchant views of the left knee obtained in the office show severe tricompartmental osteoarthrosis. IMPRESSION: 1. Left knee severe tricompartmental osteoarthrosis. 2. Obesity. 3. Non-insulin dependent diabetes. RECOMMENDATIONS: I talked to the patient at length regarding his condition and treatment options. At this point, he is quite symptomatic despite previous conservative measures. After thorough discussion, he opts to proceed with surgery. We will plan to proceed with left total knee arthroplasty. Risks and benefits were discussed at length in layman's terms. We will institute DVT prophylaxis postoperatively. MMODL / IJN: [id number] /
[~2020-03-05 08:22] MED LIST changes: +ROPIVACAINE 246.25 MG, EPINEPHrine 0.5 MG, KETOROLAC 30 MG, cloNIDine HCL/PF 80 MCG, WA... MISCELLANE ONE; -fentaNYL (PF) 50 MCG/ML 2 ML AMP IV PRN
[2020-03-05] MEDS: LACTATED RINGERS 1,000 ML IV SCH (09:10)
[2020-03-05 09:11] LABS: Glucose,Whole Blood 173 mg/dL (75-99)
[2020-03-05] MEDS ORDERED: MIDAZOLAM 2 MG/2 ML VIAL IV ONE (09:20)
[2020-03-05] MEDS ORDERED: fentaNYL (PF) 50 MCG/ML 2 ML AMP IV ONE ×2 (09:20→09:37)
[2020-03-05 09:25] LABS: Basophils # (A) 0.1 k/uL (0-0.2); Basophils % (A) 1 %; Eosinophils # (A) 0.3 k/uL (0-0.7); Eosinophils % (A) 3 %; HGB 13.5 gm/dL (13.0-17.5); Lymphocytes # (A) 1.3 k/uL (1.0-4.8); Lymphocytes % (A) 15 %; MCH 28.8 pg (25.0-35.0); MCV 87.3 fL (80.0-100.0); Mean Platelet Volume 7.7; Monocytes # (A) 0.7 k/uL (0-1.0); Monocytes % (A) 8 %; Neutrophils # (A) 5.9 k/uL (1.3-7.7); Neutrophils % (A) 70 %; Platelet Count 207 k/uL (150-450); RDW 14.3 % (11.5-15.5); WBC 8.4 k/uL (3.8-10.6)
--- NOTE | 2020-03-05 09:48 | P.ANPRN ---
Procedure Note - Anesthesia - Nerve Block Performed Left Adductor Canal Infusion Time Out Performed: Yes ([id number]) Date of Procedure: 03/05/20 Procedure Start Time: Procedure Stop Time: Location of Patient: PreOp Indication: Acute Post-Operative Pain, Analgesia, Requested by Surgeon Specifically requested for management of pain by : Rufus Gray Sedation Type: Sedate with meaningful contact maintained Preparation: Sterile Prep, Sterile Dressing Position: Supine Catheter: Indwelling Needle Types: Pajunk Needle Gauge: 18 Ultrasound used to visualize needle placement: Yes Ultrasound used to observe medication spread: Yes Injectate: 0.5% Ropivacaine (see comment for volume) (30 mL) Blood Aspirated: No Pain Paresthesia on Injection Noted: No Resistance on Injection: Normal Image Stored and Saved: Yes Events: Other (see comment) (Initial catheter was accidentally when drape was removed. Catheter was replaced easily and confirmed by USG guidance)
[2020-03-05] MEDS ORDERED: ROPIVACAINE 0.2%-NS ON-Q PUMP 1,090 MG, EMPTY PAIN BALL 1 EACH MISCELLANE PRN (09:49)
[2020-03-05] MEDS ORDERED: TRANEXAMIC ACID 1,000 MG/10 ML VIAL ONE (09:57)
[2020-03-05] MEDS ORDERED: MIDAZOLAM 2 MG/2 ML VIAL ONE (09:57)
[2020-03-05] MEDS ORDERED: PROPOFOL 10 MG/ML 20 ML VIAL IV ONE (09:57)
[2020-03-05] MEDS ORDERED: fentaNYL (PF) 50 MCG/ML 2 ML AMP ONE (09:57)
[2020-03-05] MEDS ORDERED: diphenhydrAMINE 50 MG/ML 1 ML VIAL ONE (09:57)
[2020-03-05] MEDS ORDERED: KETAMINE 10 MG/ML 20 ML VIAL ONE (09:57)
[2020-03-05] MEDS ORDERED: SODIUM CHLORIDE 0.9% 100 ML BAG ONE (09:57)
[2020-03-05] MEDS ORDERED: NALOXONE 0.4 MG/ML 1 ML VIAL IV PRN (11:50)
[2020-03-05] MEDS ORDERED: ACETAMINOPHEN TAB 325 MG TAB PO PRN (11:50)
[2020-03-05] MEDS ORDERED: MAGNESIUM HYDROXIDE 2,400 MG/10 ML CUP PO PRN (11:50)
[2020-03-05] MEDS ORDERED: HYDROcodone/APAP 10-325MG 1 EACH TAB PO PRN (11:50)
[2020-03-05] MEDS ORDERED: ONDANSETRON 4 MG/2 ML VIAL IVP PRN (11:50)
[2020-03-05] MEDS ORDERED: HYDROmorphone 0.5 MG/0.5 ML SYRINGE IVP PRN (11:50)
--- NOTE | 2020-03-05 12:19 | P.OP ---
Date of Procedure: 03/05/20 Preoperative Diagnosis: Severe left knee tricompartmental osteoarthrosis Postoperative Diagnosis: Same Procedure(s) Performed: Left total knee arthroplastycementedposterior stabilized Implants: Depuy Attune size 8 cemented femoral component, size 8 cemented tibial component with a 14 x 50 mm stem, 12 mm articular surface, 38 mm cemented patellar component. Anesthesia: regional, local, spinal Surgeon: Rufus Gray Bookkeeper Assistant #1: Ravindra Jiang Estimated Blood Loss (ml): 50 Pathology: other (Bone fragments) Condition: stable Disposition: PACU Indications for Procedure: The patient's a 65-year-old male who presents with progressive left knee pain secondary to osteoarthrosis despite conservative measures. A discussion of the risks and benefits of operative intervention versus continued conservative measures was made with patient. He opted to proceed with surgery. Operative risks to include infection, neurovascular injury, possible fracture, possible instability and loosening of components and need for subsequent procedures was discussed. Informed consent was obtained. Operative Findings: As below Description of Procedure: The patient was brought to the operating room, and after induction of spinal anesthesia the left lower extremity was prepped and draped in a normal fashion. The tourniquet was inflated to 270 mm marker. A longitudinal incision extending 3 finger breaths above the superior pole of patella extending to the medial aspect the tibial tubercle was then made. The skin and subcutaneous tissues were divided sharply. Electrocautery was used for hemostasis. A medial parapatellar arthrotomy was performed. The medial soft tissues to include the superficial and deep portions of the medial collateral ligament were elevated subperiosteally. The patella was everted. A portion of the retropatellar fat pad was excised sharply. The anterior cruciate ligament was sacrificed. Blunt retractors were placed. A starting hole was made in the distal femur 1 cm anterior to the posterior cruciate ligament origin. An intramedullary femoral guide was then inserted planning on 5 valgus distal cut with 9 mm distal resection. The cutting block was pinned in place. The distal cut was then made. The posterior referencing sizing guide was utilized. I felt size 8 was most appropriate. 3 of external rotation was built into the system and verified off the trans-epicondylar axis and the posterior condyles. The cutting block was pinned in place. The anterior, posterior, and chamfer cuts then made. Bone fragments were removed. The intercondylar guide was placed and the notch cut was made with a sagittal saw. The bone block was removed in one fragment. The trial component was then placed. There is good anterior to posterior and medial to lateral fit. The distal peg holes were drilled. The trial component was removed. Attention was then paid towards preparing the proximal femur. An extra medullary guide was utilized in line with the tibial shaft and second metatarsal distally. I planned on 2 mm resection from the medial compartment. The cutting block was pinned in place. The proximal tibial cut was then made. The bone was removed in one fragment. The remnants of the medial and lateral menisci were excised at the capsular junction with electrocautery. The tibia sized most appropriately at size 8. The trial femoral and tibial components were placed along with a 12 mm articular surface. I was able to obtain full flexion and extension with internal and external rotation. After several flexion and extension cycles, the tibial rotation was marked with electrocautery line with the medial one third of the tibial tubercle. Attention was then paid towards preparing the patella. A patella reamer was utilized taking stem to 14 mm of bone stock. A good flush cut was made. The patella sized most appropriately 38 mm. The peg holes were drilled. The trial components placed. I had good patellofemoral tracking with no hands technique. The trial components were then removed. The tibia was prepared in the appropriate rotation with appropriate drill and keel punch. I planned on a 14 x 50 mm tibial stem. The posterior osteophytes were removed with a curved osteotome. The flexion and extension gaps were checked and felt to be symmetric at 12 mm. A trial components were then removed. The posterior soft tissues were injected with ropivacaine. The bony surfaces were prepared with pulsatile lavage and dried. The tibial component was then cemented place was fully seated. Excess cement was removed. The femoral component cemented place and was fully seated. Excess cement was removed. The trial 12 mm articular surface was placed and the knee was put in full extension. The patella component was cemented place. After the cement had sufficiently hardened, the knee was again taken through a range of motion. Again I was able to obtain full flexion and extension with varus and valgus stress. The trial 38 mm articular surface was removed and the final one inserted. This was fully seated. Care was taken to avoid any soft tissue interposition. Pulsatile lavage was again utilized. The medial parapatellar arthrotomy was closed with #2 Ethibond suture. The tourniquet was deflated with approximately 60 minutes total tourniquet time. Final hemostasis was obtained with the cautery. There was minimal bleeding therefore a deep drain was not placed. The subcutaneous tissues were reapproximated with interrupted 2-0 Vicryl sutures. The skin was reapproximated with 3-0 subcuticular strata fix suture. Skin tape and adhesive was applied. A sterile dressing was applied. The patient was awoken from sedation and transferred to recovery room in good condition. Blood loss was estimated at [] mL. No complications were incurred. Sponge and needle counts were correct at the end of the case. Abhinav BUTLER assisted during the major components of this case to include exposure, bone resection, implantation, and closure.
[2020-03-05 12:32] LABS: Glucose,Whole Blood 226 mg/dL (75-99)
[2020-03-05] MEDS ORDERED: INSULIN ASPART (NovoLOG) 100 UNIT/ML VIAL SQ ONE (12:42)
--- NOTE | 2020-03-05 12:56 | XR ---
EXAMINATION TYPE: XR knee limited LT DATE OF EXAM: 03/05/2020 CLINICAL HISTORY: Left knee pain and arthritis status post total knee replacement. TECHNIQUE: Portable AP and crosstable lateral views of the left knee are obtained immediately postop eratively. COMPARISON: None FINDINGS: Metallic hardware from total left knee arthroplasty is seen and appears satisfactory in al ignment and position. There is evidence of recent surgery with diffuse subcutaneous gas and soft tis helder swelling noted. IMPRESSION: METALLIC HARDWARE FROM TOTAL LEFT KNEE ARTHROPLASTY IS SATISFACTORY IN ALIGNMENT.
[2020-03-05] MEDS: HYDROcodone/APAP 10-325MG 1 EACH TAB PO PRN (16:28)
[2020-03-05] MEDS ORDERED: FUROSEMIDE 20 MG TAB PO PRN (17:05)
[2020-03-05] MEDS ORDERED: ALBUTEROL NEBULIZED 2.5 MG/3 ML INHALATION PRN (17:05)
[2020-03-05 17:48] LABS: Glucose,Whole Blood 248 mg/dL (75-99)
[2020-03-05] MEDS: INSULIN ASPART (NovoLOG) 100 UNIT/ML VIAL SQ SCH (17:55)
[2020-03-05] MEDS: ceFAZolin 3 GM in SODIUM CHLORIDE 0.9% 100 ML IVPB SCH (17:55)
[2020-03-05] MEDS: lisinopriL 20 MG TAB PO SCH (17:55)
[2020-03-05] MEDS: ATORVASTATIN 20 MG TAB PO SCH (17:55)
[2020-03-05] MEDS: metFORMIN 500 MG TAB PO SCH (17:55)
[2020-03-05 20:38] LABS: Glucose,Whole Blood 227 mg/dL (75-99)
[2020-03-05] MEDS: SENNOSIDES-DOCUSATE SODIUM 1 EACH TAB PO SCH (21:02)
[2020-03-05] MEDS: INSULIN DETEMIR (LEVEMIR) 100 UNIT/ML SYR SQ SCH (21:02)
[2020-03-06] MEDS: ceFAZolin 3 GM in SODIUM CHLORIDE 0.9% 100 ML IVPB SCH (02:58)
[2020-03-06] MEDS: HYDROcodone/APAP 10-325MG 1 EACH TAB PO PRN ×4 (03:07→21:13)
--- NOTE | 2020-03-06 06:02 | P.PN ---
Progress Note - Text Patient was seen at bedside at 545 AM. Patient is postop day 1 from left total knee replacement with adductor canal catheter placed for pain . Ropivacaine 0.2% infusion running at 8 ml per hour. VAS score is 6. Patient denies side effects. Lower extremity sensation and motor function is intact. Patient has ambulated. Dressing clean dry and intact over catheter site
[2020-03-06 06:46] LABS: Glucose,Whole Blood 137 mg/dL (75-99)
[2020-03-06 06:52] LABS: Basophils % (A) 0 %; Eosinophils # (A) 0.1 k/uL (0-0.7); Eosinophils % (A) 1 %; HCT 37.2 % (39.0-53.0); HGB 11.9 gm/dL (13.0-17.5); Lymphocytes # (A) 1.1 k/uL (1.0-4.8); Lymphocytes % (A) 8 %; MCH 28.2 pg (25.0-35.0); MCV 88.1 fL (80.0-100.0); Mean Platelet Volume 8.1; Monocytes % (A) 8 %; Neutrophils # (A) 11.2 k/uL (1.3-7.7); Neutrophils % (A) 82 %; Platelet Count 209 k/uL (150-450); RBC 4.22 m/uL (4.30-5.90); RDW 14.1 % (11.5-15.5); WBC 13.6 k/uL (3.8-10.6)
[2020-03-06] MEDS: LACTATED RINGERS 1,000 ML IV SCH (06:58)
[2020-03-06] MEDS: metFORMIN 500 MG TAB PO SCH ×2 (07:22→17:16)
[2020-03-06] MEDS: ATORVASTATIN 20 MG TAB PO SCH (07:23)
[2020-03-06] MEDS: INSULIN ASPART (NovoLOG) 100 UNIT/ML VIAL SQ SCH ×3 (07:23→17:17)
[2020-03-06] MEDS: RIVAROXABAN 10 MG TAB PO SCH (07:23)
[2020-03-06] MEDS: SPIRONOLACTONE 25 MG TAB PO SCH (07:23)
[2020-03-06] MEDS: lisinopriL 20 MG TAB PO SCH (07:23)
[2020-03-06] MEDS: PANTOPRAZOLE 40 MG/10 ML VIAL IVP SCH (08:38)
--- NOTE | 2020-03-06 09:22 | P.CONS ---
History of Present Illness - Reason for Consult Consult date: 03/06/20 Medical management COPD diabetes mellitus hypertension Requesting physician: Rufus Gray - Chief Complaint Left knee osteoarthritis, status post elective surgical repair - History of Present Illness This is 65-year-old gentleman with past medical history of COPD, diabetes mellitus, hypertension, osteoarthritis, obesity, and multiple other medical issues, status post left total knee arthroplasty. Tolerated procedure well. Passing flatus. Blood pressures during the night in the low 1 teens to 120s, currently 150s. Denies chest pain, palpitations or shortness of breath. Reports minimal nonproductive cough. Mild elevated WBC. Blood sugars better controlled this morning. Pain controlled. Review of Systems Constitutional: Denied any fatigue denied any fever. Cardio vascular: denied any chest pain, palpitations Gastrointestinal denied any nausea vomiting Pulmonary: Denied any shortness of breath , positive mild nonproductive cough Neurologic denied any new focal deficits ROS Statement: Those systems with pertinent positive or pertinent negative responses have been documented in the HPI. ROS Other: All systems not noted in ROS Statement are negative. Past Medical History Past Medical History: COPD, Diabetes Mellitus, Hypertension, Osteoarthritis (OA) History of Any Multi-Drug Resistant Organisms: None Reported Past Surgical History: Joint Replacement, Orthopedic Surgery Additional Past Surgical History / Comment(s): shattered lt heel repair, lt knee arthroscopy, rt knee replacement Past Anesthesia/Blood Transfusion Reactions: Unable to Obtain, Previous Problems w/ Anesthesia Additional Past Anesthesia/Blood Transfusion Reaction / Comm: "come out of it before I'm supposed to" , unknown family hx Past Psychological History: No Psychological Hx Reported Smoking Status: Never smoker Past Alcohol Use History: Occasional Past Drug Use History: None Reported Additional Drug Use History / Comment(s): . - Past Family History Mother Family Medical History: Unable to Obtain Father Family Medical History: Unable to Obtain Medications and Allergies Home Medications Medication Instructions Recorded Confirmed Type Atorvastatin [Lipitor] 20 mg PO DAILY 03/27/19 02/29/20 History Insulin Detemir (Levemir) [Levemir] 100 units SQ HS 03/27/19 02/29/20 History Meloxicam 15 mg PO DAILY 03/27/19 02/29/20 History Spironolactone 50 mg PO DAILY 03/27/19 02/29/20 History lisinopriL [Zestril] 20 mg PO DAILY 03/27/19 02/29/20 History Albuterol Sulfate [Ventolin HFA] 1 - 2 puff INHALATION Q6H PRN 01/05/20 02/29/20 History Furosemide [Lasix] 20 mg PO DAILY PRN 01/05/20 02/29/20 History Multivitamins, Thera [Multivitamin 1 tab PO DAILY 01/05/20 02/29/20 History (formulary)] Phentermine HCl 37.5 mg PO AC-BRKFST 01/05/20 02/29/20 History INSULIN ASPART (NovoLOG) [NovoLOG 70 unit SQ AC-TID 02/29/20 02/29/20 History (formulary)] metFORMIN HCL 1,000 mg PO BID 02/29/20 02/29/20 History Allergies Allergy/AdvReac Type Severity Reaction Status Date / Time No Known Allergies Allergy Verified 03/05/20 09:50 Physical Exam Vitals: Vital Signs Temp Pulse Pulse Resp BP Pulse Ox 03/06/20 03:38 85 18 03/06/20 03:14 97.5 F L 85 18 171/75 100 03/05/20 23:59 18 03/05/20 22:00 102 H 18 03/05/20 19:26 98.1 F 102 H 18 103/54 97 03/05/20 13:35 98.1 F 94 20 123/73 97 03/05/20 13:16 82 18 119/72 94 L 03/05/20 13:01 84 16 113/63 92 L 03/05/20 12:45 85 18 114/66 93 L 03/05/20 12:30 85 18 96/55 94 L 03/05/20 12:12 97.6 F 98 16 91/59 98 03/05/20 08:45 989 F H 97 16 149/81 97 Intake and Output 03/05/20 03/06/20 03/06/20 22:59 06:59 14:59 Output Total 300 Balance -300 Output: Urine 300 Other: Voiding Method Toilet Toilet # Voids 2 0 PHYSICAL EXAM: VITAL SIGNS: As above GENERAL: Sitting up in bed, no acute distress HEENT: Conjunctivae normal. eyes normal. Oral mucosa moist. NECK: No JVD. No thyroid enlargement. No LNs CARDIOVASCULAR: S1, S2 regular.. No murmur RESPIRATION: Breath sounds diminished in the bases. No rhonchi or crackles. No bronchial breathing. ABDOMEN: Soft, nontender . No guarding. no masses palpable. No ascites, No hepatosplenomegaly.Bowel sounds heard. LEGS: Left leg with mild edema, dressing clean dry and intact, ice pack on top of surgical site. Denies calf pain, positive DP, PT pulses. PSYCHIATRY: Alert and oriented X3, mood and affect normal. NERVOUS SYSTEM: Cranial N 2-12 grossly normal. Moves all 4 limbs. No focal deficits. Strength and sensation grossly intact.. Skin: Warm and dry, no rash Lymphatic system. No LN neck axilla or groin. Results CBC & Chem 7: 03/06/20 06:23 Labs: Abnormal Lab Results - Last 24 Hours (Table) 03/05/20 03/05/20 03/05/20 Range/Units 09:07 12:29 17:40 WBC (3.8-10.6) k/uL RBC (4.30-5.90) m/uL Hgb (13.0-17.5) gm/dL Hct (39.0-53.0) % Neutrophils # (1.3-7.7) k/uL POC Glucose (mg/dL) 173 H 226 H 248 H (75-99) mg/dL 03/05/20 03/06/20 03/06/20 Range/Units 20:35 06:23 06:45 WBC 13.6 H (3.8-10.6) k/uL RBC 4.22 L (4.30-5.90) m/uL Hgb 11.9 L (13.0-17.5) gm/dL Hct 37.2 L (39.0-53.0) % Neutrophils # 11.2 H (1.3-7.7) k/uL POC Glucose (mg/dL) 227 H 137 H (75-99) mg/dL Assessment and Plan Assessment: Status post left total knee arthroplasty plasty secondary to severe left knee tricompartmental osteoarthrosis Mild leukocytosis, reactive Hypertension Diabetes mellitus COPD Plan: Continue on current medication regime ,monitoring and symptomatic treatment. Aggressive pulmonary toileting with incentive spirometer reinforced. Close monitoring of blood pressure and blood sugars. All meds have been reviewed and resumed accordingly. Pain management/anticoagulation as per orthopedic surgery. Thank you Dr. Gray for the consult. The impression and plan of care has been dictated as directed. : I performed a history and examination of this patient, discussed the same with the dictator. I agree with the dictator's note ,documented as a scribe. Any additional findings or plans will be noted.
--- NOTE | 2020-03-06 11:03 | P.PN ---
Subjective Progress Note Date: 03/06/20 Principal diagnosis: Status post left total knee arthroplasty Patient evaluated today at bedside, he is resting comfortably. Was able to ambulate this point with therapy. He did have some increasing pain earlier this morning compared to yesterday. He denies any headaches, lightheadedness, chest pain or shortness of breath. Objective - Vital Signs Vital signs: Vital Signs Temp 97.8 F 03/06/20 07:00 Pulse 82 03/06/20 07:00 Resp 18 03/06/20 07:00 BP 156/80 03/06/20 07:00 Pulse Ox 100 03/06/20 07:00 Intake & Output 03/05/20 03/06/20 03/06/20 18:59 06:59 18:59 Intake Total 900 Output Total 50 300 Balance 850 -300 Weight 145.1 kg Intake: IV 900 Output: Urine 300 Estimated Blood Loss 50 Other: Voiding Method Toilet # Voids 3 0 - Exam Left lower extremity: Incision is clean, dry, and intact. The exofin fusion tape is in good condition. There is minimal soft tissue swelling and ecchymosis surrounding the medial and lateral aspects of the incision. Calf is soft, no tenderness with palpation. Plantar flexion, dorsiflexion, EHL, FHL are intact. Sensory exam to light touch throughout the extremity is intact, dorsal pedis pulses 2+. - Labs CBC & Chem 7: 03/06/20 06:23 Labs: Abnormal Lab Results - Last 24 Hours (Table) 03/05/20 03/05/20 03/05/20 Range/Units 12:29 17:40 20:35 WBC (3.8-10.6) k/uL RBC (4.30-5.90) m/uL Hgb (13.0-17.5) gm/dL Hct (39.0-53.0) % Neutrophils # (1.3-7.7) k/uL POC Glucose (mg/dL) 226 H 248 H 227 H (75-99) mg/dL 03/06/20 03/06/20 Range/Units 06:23 06:45 WBC 13.6 H (3.8-10.6) k/uL RBC 4.22 L (4.30-5.90) m/uL Hgb 11.9 L (13.0-17.5) gm/dL Hct 37.2 L (39.0-53.0) % Neutrophils # 11.2 H (1.3-7.7) k/uL POC Glucose (mg/dL) 137 H (75-99) mg/dL Assessment and Plan Assessment: Status post left total knee arthroplasty Plan: Pain control, continue oral medication at this time DVT prophylaxis, continue Xarelto, plan for discharge home on this medication Wound care instructions were discussed Icing and elevating techniques discussed Home therapy and nursing after discharge Medical recommendations possible discharge home today, we'll reassess later this afternoon Time with Patient: Less than 30
[2020-03-06 11:35] LABS: Glucose,Whole Blood 126 mg/dL (75-99)
[2020-03-06] MEDS: HYDROmorphone 1 MG/ML 1 ML SYRINGE IVP PRN ×4 (11:58→23:19)
[2020-03-06 16:34] LABS: Glucose,Whole Blood 207 mg/dL (75-99)
[2020-03-06] MEDS: hydrOXYzine pamoate 25 MG CAP PO PRN ×2 (17:50→23:18)
[2020-03-06] MEDS: SENNOSIDES-DOCUSATE SODIUM 1 EACH TAB PO SCH (20:16)
[2020-03-06] MEDS: INSULIN DETEMIR (LEVEMIR) 100 UNIT/ML SYR SQ SCH (20:18)
[2020-03-06 20:28] LABS: Glucose,Whole Blood 129 mg/dL (75-99)
[2020-03-07] MEDS: LACTATED RINGERS 1,000 ML IV SCH (05:54)
[2020-03-07 07:03] LABS: Glucose,Whole Blood 164 mg/dL (75-99)
[2020-03-07] MEDS: INSULIN ASPART (NovoLOG) 100 UNIT/ML VIAL SQ SCH ×2 (07:36→12:01)
[2020-03-07] MEDS: HYDROcodone/APAP 10-325MG 1 EACH TAB PO PRN ×2 (07:42→13:38)
[2020-03-07] MEDS: PANTOPRAZOLE 40 MG/10 ML VIAL IVP SCH (07:44)
[2020-03-07] MEDS: metFORMIN 500 MG TAB PO SCH (07:44)
[2020-03-07] MEDS: hydrOXYzine pamoate 25 MG CAP PO PRN ×2 (07:44→13:39)
[2020-03-07] MEDS: SPIRONOLACTONE 25 MG TAB PO SCH (07:45)
[2020-03-07] MEDS: RIVAROXABAN 10 MG TAB PO SCH (07:45)
[2020-03-07] MEDS: lisinopriL 20 MG TAB PO SCH (07:45)
[2020-03-07] MEDS: ATORVASTATIN 20 MG TAB PO SCH (07:45)
[2020-03-07 08:33] VITALS: BP 124/73; PULSE 98; RESP 18; TEMP 97.6
--- NOTE | 2020-03-07 09:28 | P.PN ---
Subjective Progress Note Date: 03/07/20 This is 65-year-old gentleman with past medical history of COPD, diabetes mellitus, hypertension, osteoarthritis, obesity, and multiple other medical issues, status post left total knee arthroplasty. Tolerated procedure well. Passing flatus. Blood pressures during the night in the low 1 teens to 120s, c urrently 150s. Denies chest pain, palpitations or shortness of breath. Reports minimal nonproductive cough. Mild elevated WBC. Blood sugars better controlled this morning. Pain controlled. 03/07/2020 reports rough night, significant pain. Pain pump present. This morning complaining of leg stiffness, difficulty moving. Yesterday completed stairs with PT, tolerated exertion well. Sitting up at side of bed, good diet intake with no nausea vomiting or diarrhea. Blood sugars controlled. Passing flatus. Blood pressure controlled. Afebrile. CBC pending. Pathology reporting osteoarthritis, gross only. Objective - Vital Signs Vital signs: Vital Signs Temp 97.6 F 03/07/20 07:00 Pulse 98 03/07/20 07:00 Resp 18 03/07/20 07:00 BP 124/73 03/07/20 07:00 Pulse Ox 96 03/07/20 07:00 Intake & Output 03/06/20 03/07/20 03/07/20 18:59 06:59 18:59 Intake Total 100 Balance 100 Intake: Oral 100 Other: Voiding Method Toilet Toilet # Voids 3 3 - Exam PHYSICAL EXAM: VITAL SIGNS: As above GENERAL: Alert and oriented 3, Sitting up at side of bed, NAD HEENT: Conjunctivae normal. eyes normal. Oral mucosa moist. CARDIOVASCULAR: S1, S2 regular.No murmur RESPIRATION: Unlabored, Breath sounds diminished in the bases. ABDOMEN: Soft, nondistended, nontender. Positive bowel sounds. LEGS: Left leg with mild edema, dressing clean dry and intact,positive DP, PT pulses. NERVOUS SYSTEM: Cranial N 2-12 grossly normal.No focal deficits. Strength and sensation grossly intact.. Skin: Warm and dry, no rash - Labs CBC & Chem 7: 03/06/20 06:23 Labs: Abnormal Lab Results - Last 24 Hours (Table) 03/06/20 03/06/20 03/06/20 Range/Units 11:32 16:33 20:17 POC Glucose (mg/dL) 126 H 207 H 129 H (75-99) mg/dL 03/07/20 Range/Units 07:02 POC Glucose (mg/dL) 164 H (75-99) mg/dL Assessment and Plan Assessment: Status post left total knee arthroplasty plasty secondary to severe left knee tricompartmental osteoarthrosis Mild leukocytosis, reactive Hypertension Diabetes mellitus COPD Plan: Continue on current medication regime ,monitoring and symptomatic treatment. Continue with ice to surgical site. Pain management as per primary. PT. CBC pending .Aggressive pulmonary toileting with incentive spirometer reinforced. Anticoagulation as per orthopedic surgery. Thank you Dr. Gray for the consult. The impression and plan of care has been dictated as directed. : I performed a history and examination of this patient, discussed the same with the dictator. I agree with the dictator's note ,documented as a scribe. Any additional findings or plans will be noted.
[2020-03-07] MEDS: HYDROmorphone 1 MG/ML 1 ML SYRINGE IVP PRN (09:32)
[2020-03-07 10:06] LABS: HGB 11.3 gm/dL (13.0-17.5); MCHC 33.1 g/dL (31.0-37.0); MCV 87.5 fL (80.0-100.0); Mean Platelet Volume 8.2; Platelet Count 156 k/uL (150-450); RBC 3.89 m/uL (4.30-5.90); RDW 14.2 % (11.5-15.5)
--- NOTE | 2020-03-07 10:36 | P.PN ---
Subjective Progress Note Date: 03/07/20 Principal diagnosis: Status post left total knee arthroplasty Patient evaluated today at bedside, still having some increasing pain throughout the knee. He denies any headaches, lightheadedness, chest pain or shortness of breath. Objective - Vital Signs Vital signs: Vital Signs Temp 97.6 F 03/07/20 07:00 Pulse 98 03/07/20 07:00 Resp 18 03/07/20 07:00 BP 124/73 03/07/20 07:00 Pulse Ox 96 03/07/20 07:00 Intake & Output 03/06/20 03/07/20 03/07/20 18:59 06:59 18:59 Intake Total 100 Balance 100 Intake: Oral 100 Other: Voiding Method Toilet Toilet # Voids 3 3 - Exam Left lower extremity: Incision is clean, dry, and intact. The exofin fusion tape is in good condition. There is minimal soft tissue swelling and ecchymosis surrounding the medial and lateral aspects of the incision. Calf is soft, no tenderness with palpation. Plantar flexion, dorsiflexion, EHL, FHL are intact. Sensory exam to light touch throughout the extremity is intact, dorsal pedis pulses 2+. - Labs CBC & Chem 7: 03/07/20 09:38 Labs: Abnormal Lab Results - Last 24 Hours (Table) 03/06/20 03/06/20 03/06/20 Range/Units 11:32 16:33 20:17 RBC (4.30-5.90) m/uL Hgb (13.0-17.5) gm/dL Hct (39.0-53.0) % POC Glucose (mg/dL) 126 H 207 H 129 H (75-99) mg/dL 03/07/20 03/07/20 Range/Units 07:02 09:38 RBC 3.89 L (4.30-5.90) m/uL Hgb 11.3 L (13.0-17.5) gm/dL Hct 34.0 L (39.0-53.0) % POC Glucose (mg/dL) 164 H (75-99) mg/dL Assessment and Plan Assessment: Status post left total knee arthroplasty Plan: Pain control, plan for discharge home on Silver 10 mg/325 mg DVT prophylaxis, continue Xarelto, plan for discharge home on this medication Wound care instructions were discussed Icing and elevating techniques discussed Home therapy and nursing after discharge Medical recommendations Discharge home today Time with Patient: Less than 30
--- NOTE | 2020-03-07 10:42 | P.DS ---
Providers Date of admission: 03/05/2020 Expected date of discharge: 03/07/20 Attending physician: Rufus Gray Primary care physician: Nick Briones [facility] Course: Date of admission: 03/05/2020 Date of discharge: 03/07/2020 Admission diagnosis: Status post left total knee arthroplasty Discharge diagnosis: Same Attending physician: Dr. Gray Surgical procedures: Left total knee arthroplasty Brief history: Patient is a 65-year-old male with a history of progressive primary left knee osteoarthritis. At this point patient has failed conservative treatment measures and has opted to proceed with a elective left total knee arthroplasty. Hospital course: Details of patient's surgery can be found in operative report. Patient tolerated the procedure well and was subsequently transported to orthopedic floor. Patient's orthopeidc and medical care was provided daily. Patient had daily laboratory tests performed for evaluation of overall blood counts. Patient had daily physical therapy to include strengthening range of motion as well as education with walker ambulation. Patient was treated with Xarelto for their postoperative DVT prophylaxis during their inpatient stay. Patient was noted to have a relatively uneventful postoperative course. Patient reported satisfactory pain control with oral pain medications by postoperative day 0. Patient showed satisfactory progress with physical therapy. Patient moved steadily through the program and had no difficulty meeting the goals by postoperative day 2. Given patient's otherwise satisfactory course and having met physical therapy goals, plan is to discharge patient home on postoperative day 2. Discharge condition/disposition: Patient will be discharged home in stable condition. Discharge medications: Instructions are given on resumption of patient's normal daily medications per primary care recommendation, in addition patient will be prescribed Wooster 10 mg/325 mg, Vistaril 25 mg, Colace 100 mg, Xarelto 10mg. Discharge instructions: 1. Wound care and infection precautions, keep incision dry and covered while showering, no lotions, creams, moisturizers. No soaking, tubs, pools, hottubs. Do not scrub over the incision. 2. Weight-bear as tolerated with walker / cane until follow-up. 3. Ice and elevate when necessary. Do not exceed 20 minutes per hour with ice pack. 4. Utilize compression sleeve until seen at first follow up appointment. 5. Visiting nursing care. 6. Home physical therapy including home CPM. 7. Pain meds and anticoagulants per prescription. 8. Pain medication has potential to cause constipation. Increase oral fluid and fiber intake. Contact primary care provider if you have not had a bowel movement within 48 hours after discharge 9. No anti-inflammatory medication until discussed at first post operative visit, this including Motrin, Aleve, Mobic, Diclofenac. 10. Follow up in office at 2 weeks postop with Abhinav Jiang PA-C 11. Follow up with your primary care doctor 7-10 days after discharge. 12. Contact [facility] with any questions, . Procedures: Left total knee arthroplasty Patient Condition at Discharge: Good Plan - Discharge Summary Discharge Rx Participant: No New Discharge Prescriptions: New Docusate [Colace] 100 mg PO DAILY #30 capsule Hydrocodone/Acetaminophen [Wooster 10-325] 1 - 2 each PO Q6H PRN #56 tab PRN Reason: Pain hydrOXYzine pamoate [Vistaril] 25 mg PO Q6HR #30 capsule Rivaroxaban [Xarelto] 10 mg PO DAILY #12 tab No Action lisinopriL [Zestril] 20 mg PO DAILY Spironolactone 50 mg PO DAILY Meloxicam 15 mg PO DAILY Insulin Detemir (Levemir) [Levemir] 100 units SQ HS Atorvastatin [Lipitor] 20 mg PO DAILY Albuterol Sulfate [Ventolin HFA] 1 - 2 puff INHALATION Q6H PRN PRN Reason: Dyspnea Phentermine HCl 37.5 mg PO AC-BRKFST Furosemide [Lasix] 20 mg PO DAILY PRN PRN Reason: Edema Multivitamins, Thera [Multivitamin (formulary)] 1 tab PO DAILY metFORMIN HCL 1,000 mg PO BID INSULIN ASPART (NovoLOG) [NovoLOG (formulary)] 70 unit SQ AC-TID Discharge Medication List Atorvastatin [Lipitor] 20 mg PO DAILY 03/27/19 [History] Insulin Detemir (Levemir) [Levemir] 100 units SQ HS 03/27/19 [History] Meloxicam 15 mg PO DAILY 03/27/19 [History] Spironolactone 50 mg PO DAILY 03/27/19 [History] lisinopriL [Zestril] 20 mg PO DAILY 03/27/19 [History] Albuterol Sulfate [Ventolin HFA] 1 - 2 puff INHALATION Q6H PRN 01/05/20 [History] Furosemide [Lasix] 20 mg PO DAILY PRN 01/05/20 [History] Multivitamins, Thera [Multivitamin (formulary)] 1 tab PO DAILY 01/05/20 [History] Phentermine HCl 37.5 mg PO AC-BRKFST 01/05/20 [History] INSULIN ASPART (NovoLOG) [NovoLOG (formulary)] 70 unit SQ AC-TID 02/29/20 [History] metFORMIN HCL 1,000 mg PO BID 02/29/20 [History] Docusate [Colace] 100 mg PO DAILY #30 capsule 03/07/20 [Rx] Hydrocodone/Acetaminophen [Wooster 10-325] 1 - 2 each PO Q6H PRN #56 tab 03/07/20 [Rx] Rivaroxaban [Xarelto] 10 mg PO DAILY #12 tab 03/07/20 [Rx] hydrOXYzine pamoate [Vistaril] 25 mg PO Q6HR #30 capsule 03/07/20 [Rx] Follow up Appointment(s)/Referral(s): [facility] [NON-STAFF] - As Needed (Continuous Passive Motion knee machine) Ravindra Jiang PAC [PHYSICIAN [employer] STOCK INSPECTOR] - 03/20/20 2:50 pm [facility] Visiting Nurse, [NON-STAFF] - As Needed Activity/Diet/Wound Care/Special Instructions: Orthopedic Discharge Instructions: 1. Wound care and infection precautions, keep incision dry and covered while showering, no lotions, creams, moisturizers. No soaking, pools, hot tubs. Do not scrub over incision. 2. Weight-bear as tolerated with walker / cane until follow-up. 3. Ice and elevate when necessary. Do not exceed 20 minutes per hour with ice pack. 4. Utilize compression sleeve until seen at first follow up appointment. 5. Pain meds and anticoagulants per prescription. 6. Pain medication has potential to cause constipation. Increase oral fluid and fiber intake. Contact primary care provider if you have not had a bowel movement within 48 hours after discharge. 7. No anti-inflammatory medication until discussed at first post operative visit, this including Motrin, Aleve, Mobic, Diclofenac. 8. Follow up in office at 2 weeks postop with Abhinav Jiang PA-C 9. Follow up with your primary care doctor 7-10 days after discharge. 10. Contact [facility] with any questions, . Discharge Disposition: HOME WITH HOME HEALTH SERVICES
[2020-03-07 11:33] LABS: Glucose,Whole Blood 90 mg/dL (75-99)
== END 2020-03-07 15:28 | disposition home health service (06) ==
LOC: OR 08:22 → 4SSUR 12:07 → OR 03-07 15:28
PROVIDERS: ATTEND Orthopaedic Surgery
DX: M17.12 Unilateral primary osteoarthritis, left knee (principal); E11.9 Type 2 diabetes mellitus without complications; I10 Essential (primary) hypertension; J44.9 Chronic obstructive pulmonary disease, unspecified; E66.9 Obesity, unspecified; Z68.41 Body mass index [BMI] 40.0-44.9, adult; Z79.1 Long term (current) use of non-steroidal anti-inflammatories (NSAID); Z79.4 Long term (current) use of insulin; Z79.899 Other long term (current) drug therapy; Z97.2 Presence of dental prosthetic device (complete) (partial)
CPT/HCPCS: 97116; 97161; 64448; 76942; 85025 ×2; 85027; 88300; 73560; 27447; C1713; C1776; J2250; J0171; J1200; J1100; J0690 ×2; J2405; J3010; J1885; J1170 ×2; J2795 ×2; J2704; J0735; C9113 ×2